=== PATIENT | male | born 1990 | race Caucasian/White ===

== ENCOUNTER → 2016-03-11 | Outpatient (RCR) | payer OTHER ==
[~2016-03-11] MED LIST: AUGM875T27 PO; PROT1TAB2 PO; SUCR1TA PO; [UNRECOGNIZED DRUG - CODE] IM
== END ==
LOC: M OUTALCOH 02-21 16:00
PROVIDERS: ATTEND Psychiatry & Neurology Psychiatry
DX: F10.20 Alcohol dependence, uncomplicated (principal); F17.200 Nicotine dependence, unspecified, uncomplicated

== ENCOUNTER 2016-04-07 08:00 | Outpatient (RCR) | payer OTHER | END 2016-04-08 | LOC: M OUTALCOH 08:00 | PROVIDERS: ATTEND Psychiatry & Neurology Psychiatry | DX: F10.20 Alcohol dependence, uncomplicated (principal); F17.200 Nicotine dependence, unspecified, uncomplicated ==

== ENCOUNTER 2016-04-29 08:15 | Emergency (ER) | payer OTHER ==
[~2016-04-29] VITALS: Ht 182.9 cm; Wt 81.6 kg
[2016-04-29] MEDS ORDERED: MAGICMW MT (09:20)
[2016-04-29 09:34] VITALS: BP 122/72
== END 2016-04-29 09:37 | disposition home or self-care (01) ==
LOC: M ED 09:21
DX: J06.9 Acute upper respiratory infection, unspecified (principal); J02.9 Acute pharyngitis, unspecified

== ENCOUNTER → 2016-05-09 | Outpatient (RCR) | payer OTHER ==
[~2016-05-09] MED LIST changes: +MAGICMW MT
== END ==
LOC: M OUTALCOH 04-09 14:57
PROVIDERS: ATTEND Psychiatry & Neurology Psychiatry
DX: F10.20 Alcohol dependence, uncomplicated (principal); F17.200 Nicotine dependence, unspecified, uncomplicated

== ENCOUNTER → 2016-05-28 | Outpatient (CLI) | payer OTHER ==
[2016-05-28 08:45] LABS: MEAN CORPUSCULAR HEMOGLOBIN 30.3 pg (27.0-33.0); MEAN CORPUSCULAR HGB CONC 36.3 g/dl (32.0-36.5); MEAN CORPUSCULAR VOLUME 83.7 fl (80.0-96.0); RED CELL DISTRIBUTION WIDTH 12.2 % (11.5-14.5); WHITE BLOOD COUNT 4.8 K/mm3 (4.0-10.0)
[2016-05-28 09:31] LABS: ALBUMIN 4.1 GM/DL (3.2-5.2); ALBUMIN/GLOBULIN RATIO 1.28 (1.00-1.93); ALKALINE PHOSPHATASE 65 U/L (45-117); ALT/SGPT 24 U/L (12-78); ANION GAP 7 MEQ/L (8-16); AST/SGOT 14 U/L (15-37); BILIRUBIN,TOTAL 0.3 MG/DL (0.2-1.0); BLOOD UREA NITROGEN 19 MG/DL (7-18); CALCIUM LEVEL 8.5 MG/DL (8.5-10.1); CARBON DIOXIDE LEVEL 29 MEQ/L (21-32); CHLORIDE LEVEL 107 MEQ/L (98-107); CREATININE FOR GFR 1.02 MG/DL (0.70-1.30); GLOMERULAR FILTRATION RATE > 60.0 (>60); GLUCOSE, FASTING 98 MG/DL (70-105); POTASSIUM SERUM 4.1 MEQ/L (3.5-5.1); SODIUM LEVEL 143 MEQ/L (136-145); TOTAL PROTEIN 7.3 GM/DL (6.4-8.2)
[2016-05-30 00:06] LABS: BENZODIAZEPINES, URINE SCREEN Negative ng/mL (Cutoff=200); METHADONE, URINE SCREEN Negative ng/mL (Cutoff=300); pH, URINE 6.2 (4.5-8.9)
== END ==
LOC: M LAB 08:10
PROVIDERS: ATTEND Student in an Organized Health Care Education/Training Program
DX: Z71.89 Other specified counseling (principal); Z87.898 Personal history of other specified conditions

== ENCOUNTER 2016-06-06 15:00 | Outpatient (RCR) | payer OTHER | END 2016-06-08 | LOC: M OUTALCOH 15:00 | PROVIDERS: ATTEND Psychiatry & Neurology Psychiatry | DX: Z13.9 Encounter for screening, unspecified (principal); F10.20 Alcohol dependence, uncomplicated; F17.200 Nicotine dependence, unspecified, uncomplicated ==

== ENCOUNTER → 2016-07-09 | Outpatient (RCR) | payer OTHER | LOC: M OUTALCOH 06-09 15:36 | PROVIDERS: ATTEND Psychiatry & Neurology Psychiatry | DX: Z13.9 Encounter for screening, unspecified (principal); F10.20 Alcohol dependence, uncomplicated; F17.200 Nicotine dependence, unspecified, uncomplicated ==

== ENCOUNTER 2016-08-01 10:14 | Outpatient (RCR) | payer OTHER ==
[~2016-08-01 10:14] MED LIST changes: -AUGM875T27 PO; +AUGM875T28 PO
== END 2016-08-08 ==
LOC: M OUTALCOH 10:14
PROVIDERS: ATTEND Psychiatry & Neurology Psychiatry
DX: F10.20 Alcohol dependence, uncomplicated (principal); F17.200 Nicotine dependence, unspecified, uncomplicated

== ENCOUNTER → 2016-08-08 | Outpatient (RCR) | payer OTHER ==
[~2016-08-08] MED LIST changes: +CEPH500C; +HYDR1SOL; +IBUP80TA; +LIDO1SOL7 MT; +ZOFR4TAB3 PO
== END ==
LOC: M OUTALCOH 07-16 15:00
PROVIDERS: ATTEND Psychiatry & Neurology Psychiatry
DX: Z13.9 Encounter for screening, unspecified (principal); F10.20 Alcohol dependence, uncomplicated; F17.200 Nicotine dependence, unspecified, uncomplicated

== ENCOUNTER → 2016-08-22 | Day surgery (SDC) | payer OTHER, MEDICAID ==
[~2016-08-22] VITALS: Ht 182.9 cm; Wt 81.6 kg
[~2016-08-22] MED LIST changes: +BUPIVACAINE HCL 0.5% 30 ML VIAL As Ordered ONE; +HYDROcodone/APAP LIQUID 7.5-325MG 15ML UDC (LORTAB ELIXIR) PO PRN; +HYDROmorphone HCL 2 MG/ML 1ML VIAL (J1170) As Ordered ONE; +IBUPROFEN 100 MG/5 ML SUSP UDC DYE FREE PO PRN; +LIDOCAINE 2% INJ 100 MG/5 ML SDV (FOR ANES.) As Ordered ONE; +LR 1,000 ML IV ONE; +LR 1,000 ML IV SCH; +MIDAZOLAM INJ 2 MG/2 ML VIAL (J2250) As Ordered ONE; +ONDANSETRON 4MG/2ML VIAL (J2405) As Ordered ONE; +ONDANSETRON 4MG/2ML VIAL (J2405) IV PRN; +PROPOFOL 200 MG/20 ML VIAL As Ordered ONE; +ROCURONIUM BROMIDE 50 MG/5 ML VIAL/SYRINGE As Ordered ONE; +dexameTHASONE 4 MG/ML 1ML VIAL (J1100) As Ordered ONE; +fentaNYL 100 MCG/2 ML INJECTION (J3010) As Ordered ONE; +fentaNYL 100 MCG/2 ML INJECTION (J3010) IV PRN
[2016-08-22 13:20] VITALS: BP 130/82
--- NOTE | 2016-08-23 08:51 | RO ---
DATE OF PROCEDURE: 08/22/2016 PREOPERATIVE DIAGNOSIS: Chronic tonsillitis. POSTOPERATIVE DIAGNOSIS: Chronic tonsillitis. PROCEDURE: Tonsillectomy. SURGEON: Brandon Bradford MD PROFESSOR OF APOLOGETICS: ANESTHESIA: General endotracheal. INDICATION: This 25-year-old presents with a long history of recurrent tonsillitis and pharyngitis. DESCRIPTION OF PROCEDURE: After satisfactory general endotracheal anesthesia was administered, the patient placed in Trendelenburg position. A Pascual-Candelario gag was inserted. The right tonsil was first removed. The tonsil was grasped with an Allis clamp and retracted out of its muscular fossa, and cutting cautery incision was made on the anterior pillar 3 mm from its edge and the capsule of the tonsil was then identified. Using a combination of cautery and blunt dissection, the tonsil was dissected medially out of its muscular fossa. Preserving the posterior pillar in its entirety. Once the tonsil was suspended only at the inferior pole, coagulation current was used to amputate tissue. No significant bleeding was encountered in this dissection. The left tonsil was removed in a similar fashion in the superior pole. In the region of the soft palate, arterial bleeding was encountered and this had to be oversewn with #3-0 Vicryl [id number] suture. This controlled the bleed without any difficulty. The tonsils were both hypertrophic and clearly fibrosed to the muscular fossa, but the tonsils were removed completely. After completing surgery, the gag was released at 3 minutes. Reinspection showed no active bleeding. 0.25% Marcaine was injected into the surgical site. He tolerated the procedure well and was sent to recovery in satisfactory condition. He will be discharged home on pain medication, including plain Tylenol, Motrin 800 mg three times a day, and Hycet elixir. He will be seen back in the office in 1 week.
== END | disposition home or self-care (01) ==
LOC: M SDC 07:55
PROVIDERS: ATTEND Specialist
DX: J35.01 Chronic tonsillitis (principal); F17.220 Nicotine dependence, chewing tobacco, uncomplicated
CPT/HCPCS: 42826; 88302; J1100; J1170; J2250; J2405; J3010

== ENCOUNTER 2016-08-24 17:05 | Emergency (ER) | payer OTHER, MEDICAID ==
[~2016-08-24] VITALS: Ht 182.9 cm; Wt 80.8 kg
[~2016-08-24 17:05] MED LIST changes: -BUPIVACAINE HCL 0.5% 30 ML VIAL As Ordered ONE; -CEPH500C; -HYDR1SOL; -HYDROcodone/APAP LIQUID 7.5-325MG 15ML UDC (LORTAB ELIXIR) PO PRN; -HYDROmorphone HCL 2 MG/ML 1ML VIAL (J1170) As Ordered ONE; -IBUP80TA; -IBUPROFEN 100 MG/5 ML SUSP UDC DYE FREE PO PRN; -LIDO1SOL7 MT; -LIDOCAINE 2% INJ 100 MG/5 ML SDV (FOR ANES.) As Ordered ONE; -LR 1,000 ML IV ONE; -LR 1,000 ML IV SCH; -MIDAZOLAM INJ 2 MG/2 ML VIAL (J2250) As Ordered ONE; -ONDANSETRON 4MG/2ML VIAL (J2405) As Ordered ONE; -ONDANSETRON 4MG/2ML VIAL (J2405) IV PRN; -PROPOFOL 200 MG/20 ML VIAL As Ordered ONE; -ROCURONIUM BROMIDE 50 MG/5 ML VIAL/SYRINGE As Ordered ONE; -ZOFR4TAB3 PO; -dexameTHASONE 4 MG/ML 1ML VIAL (J1100) As Ordered ONE; -fentaNYL 100 MCG/2 ML INJECTION (J3010) As Ordered ONE; -fentaNYL 100 MCG/2 ML INJECTION (J3010) IV PRN
[2016-08-24] MEDS ORDERED: HYDR1SOL (17:25)
[2016-08-24] MEDS ORDERED: CEPH500C (17:25)
[2016-08-24] MEDS ORDERED: IBUP80TA (17:25)
[2016-08-24] MEDS ORDERED: LIDOCAINE VISCOUS 2% SOLN 15ML UDC PO ONE ×2 (18:45→20:45)
[2016-08-24] MEDS ORDERED: ONDANSETRON 4MG/2ML VIAL (J2405) IV ONE (18:45)
[2016-08-24] MEDS ORDERED: KETOROLAC 30 MG/ML VIAL (J1885) IV ONE (18:45)
[2016-08-24] MEDS ORDERED: NS 1,000 ML IV ONE (18:45)
[2016-08-24] MEDS ORDERED: ZOFR4TAB3 PO (20:22)
[2016-08-24] MEDS ORDERED: LIDO1SOL7 MT (20:23)
[2016-08-24 20:43] VITALS: BP 146/68
== END 2016-08-24 20:45 | disposition home or self-care (01) ==
LOC: M ED 17:05
DX: G89.18 Other acute postprocedural pain (principal)
CPT/HCPCS: 96361; 96374; 96375; 99283; J1885; J2405

== ENCOUNTER 2016-09-05 13:00 | Outpatient (RCR) | payer OTHER ==
[~2016-09-05 13:00] MED LIST changes: +CEPH500C; +HYDR1SOL; +IBUP80TA; +LIDO1SOL7 MT; +ZOFR4TAB3 PO
== END 2016-09-08 ==
LOC: M OUTALCOH 13:00
PROVIDERS: ATTEND Psychiatry & Neurology Psychiatry
DX: F10.20 Alcohol dependence, uncomplicated (principal); F17.200 Nicotine dependence, unspecified, uncomplicated

== ENCOUNTER 2016-10-03 13:00 | Outpatient (RCR) | payer OTHER, MEDICAID | END 2016-10-09 | LOC: M OUTALCOH 13:00 | PROVIDERS: ATTEND Psychiatry & Neurology Psychiatry | DX: F10.20 Alcohol dependence, uncomplicated (principal); F14.20 Cocaine dependence, uncomplicated; F17.200 Nicotine dependence, unspecified, uncomplicated ==

== ENCOUNTER → 2016-10-16 | Outpatient (REF) | payer OTHER | LOC: M LAB REF 16:42 | PROVIDERS: ATTEND Surgery | DX: Z20.2 Contact with and (suspected) exposure to infections with a predominantly sexual mode of transmission (principal) ==

== ENCOUNTER → 2021-06-10 | Outpatient (CLI) | payer MEDICAID ==
[~2021-06-10] MED LIST changes: -LIDO1SOL7 MT; +LIDO2SOL17 MT; +ZOFR4TAB14 PO; -ZOFR4TAB3 PO
== END ==
LOC: M OUTALCOH 08:18
PROVIDERS: ATTEND Psychiatry & Neurology Psychiatry
DX: Z13.39 Encounter for screening examination for other mental health and behavioral disorders (principal)

== ENCOUNTER 2021-06-21 16:02 | Outpatient (RCR) | payer SELFPAY | END 2021-07-09 | LOC: M OUTALCOH 16:02 | PROVIDERS: ATTEND Psychiatry & Neurology Psychiatry | DX: F10.10 Alcohol abuse, uncomplicated (principal); F17.200 Nicotine dependence, unspecified, uncomplicated ==

== ENCOUNTER 2021-08-28 13:03 | Emergency (ER) | payer MEDICAID, SELFPAY ==
[~2021-08-28] VITALS: Ht 182.9 cm; Wt 91.9 kg
[2021-08-28] MEDS ORDERED: BENA25CA4 PO (13:11)
[2021-08-28] MEDS ORDERED: IBUP200T46 PO (13:12)
[2021-08-28] MEDS ORDERED: predniSONE 20 MG TAB PO ONE (13:15)
[2021-08-28] MEDS ORDERED: PRED20TA PO (14:19)
[2021-08-28 14:40] VITALS: BP 135/81
== END 2021-08-28 14:41 | disposition home or self-care (01) ==
LOC: M ED 13:03
DX: T63.441A Toxic effect of venom of bees, accidental (unintentional), initial encounter (principal)
CPT/HCPCS: 99284; J7512